=== PATIENT | female | born 1985 | race Caucasian/White ===

== ENCOUNTER 2016-09-01 12:27 | Emergency (ER) | payer MEDICAID, OTHER ==
[~2016-09-01] VITALS: Wt 103.0 kg
[2016-09-01] MEDS ORDERED: IBUPROFEN 600 MG TAB PO ONE (15:00)
[2016-09-01] MEDS ORDERED: UDROBDM PO (15:17)
[2016-09-01] MEDS ORDERED: IBUP-1542 PO (15:17)
[2016-09-01] MEDS ORDERED: AZIT250T94 PO (15:17)
--- NOTE | 2016-09-01 15:21 | ERD ---
ER Documentation Chief Complaint Date/Time DATE: 09/01/16 TIME: 15:20 Chief Complaint HEADACHE X 2 DAYS HPI This 31-year-old female presents with cough and headache for last 2 days. She is here with her for to 5 children with similar URI symptoms. She denies any history of trauma, vomiting, abdominal pain, shortness breath or chest pain. ROS All systems reviewed and are negative except as per history of present illness. Medications Home Meds Active Scripts Azithromycin* (Zithromax*) 250 Mg Tablet, 250 MG PO .ZPACK DIRECTED, #6 TAB TAKE 500 MG (2 TABS) THE FIRST DAY THEN 250 MG (1 TAB) DAYS 2-5 Prov:TARUN ASENCIO MD 09/01/16 Guaifenesin-Dextromethorphan* (Robitussin* DM) 100MG/10MG/5ML Syrup, 5 ML PO Q4H Y for COUGH for 5 Days, ML Prov:TARUN ASENCIO MD 09/01/16 Ibuprofen* (Motrin*) 600 Mg Tab, 600 MG PO Q6, #15 TAB Prov:TARUN ASENCIO MD 09/01/16 Physical Exam Vitals Vital Signs Date Time Temp Pulse Resp B/P Pulse Ox O2 Delivery O2 Flow Rate FiO2 09/01/16 12:40 98.1 106 18 126/72 99 Physical Exam Const: [] Alert, [id number] per Head: Atraumatic Eyes: Normal Conjunctiva ENT: Normal External Ears, Nose and Mouth. TMs and oropharynx normal. Neck: Full range of motion..~ No meningismus. Resp: Clear to auscultation bilaterally. Patient has noticeable wet cough without rales or retractions appreciated Cardio: Regular rate and rhythm, no murmurs Abd: Soft, non tender, non distended. Normal bowel sounds Skin: No petechiae or rashes Back: No midline or flank tenderness Ext: No cyanosis, or edema Neur: Awake and alert Psych: Normal Mood and Affect Results 24 hrs Current Medications Medications (Trade) Dose Ordered Sig/Davie Route PRN Reason Start Time Stop Time Status Last Admin Dose Admin Ibuprofen (Motrin) 600 mg ONCE ONCE PO 09/01/16 15:00 09/01/16 15:01 DC Procedures/MDM Patient presents with URI symptoms in addition to several family members with similar. Given the productive cough she will be treated with Zithromax, Robitussin and ibuprofen. The patient was stable with no new complaints during the ER course. Clinically, there is no current evidence to suggest meningitis, sepsis, acute abdomen, pneumonia, acute coronary syndrome, pulmonary embolism, or any other emergent condition appearing to require further evaluation or hospitalization. The patient should certainly return for any new or worsening symptoms per the aftercare instructions. They should otherwise follow-up with her primary care doctor for reevaluation this week. Departure Diagnosis: Primary Impression: URI, acute Additional Impression: Headache Headache type: unspecified Headache chronicity pattern: unspecified pattern Intractability: not intractable Qualified Code: R51 - Nonintractable headache, unspecified chronicity pattern, unspecified headache type Condition: Stable Patient Instructions: Acute Bronchitis Additional Instructions: Recheck for new or worsening symptoms or with primary care doctor. TARUN ASENCIO MD Sep 01, 2016 15:21
[2016-09-01 15:55] VITALS: BP 120/70; PULSE 88; RESP 18; TEMP 98.1
== END 2016-09-01 15:55 | disposition home or self-care (01) ==
LOC: FTE 12:27
DX: J06.9 Acute upper respiratory infection, unspecified (principal); R51 Headache; J45.909 Unspecified asthma, uncomplicated
CPT/HCPCS: Z7502; Z7610; 99283

== ENCOUNTER 2016-10-11 23:15 | Emergency (ER) | payer MEDICAID, OTHER ==
[~2016-10-11] VITALS: Ht 160 cm; Wt 103.0 kg
[~2016-10-11 23:15] MED LIST: AZIT250T94 PO; IBUP-1542 PO; UDROBDM PO
[2016-10-11 23:19] VITALS: Ht 160 cm; Wt 103.0 kg
[2016-10-12 01:01] LABS: URINE BLOOD (Dip) POC Negative (NEGATIVE)
[2016-10-12 01:31] LABS: ADD UMIC NO; URINE BILIRUBIN (Dip) NEGATIVE (NEGATIVE); URINE BLOOD (Dip) NEGATIVE (NEGATIVE); URINE COLOR LT. YELLOW (YELLOW); URINE GLUCOSE (Dip) NEGATIVE (NEGATIVE); URINE KETONES (Dip) NEGATIVE (NEGATIVE); URINE LEUKOCYTE ESTERASE (Dip) NEGATIVE (NEGATIVE); URINE NITRITE (Dip) NEGATIVE (NEGATIVE); URINE TOTAL PROTEIN (Dip) NEGATIVE (NEGATIVE); URINE UROBILINOGEN (Dip) 0.2 E.U./dL (0.1-1.0)
[2016-10-12 01:36] LABS: ADD SCAN DIFF NO
--- NOTE | 2016-10-12 01:36 | ERD ---
ER Documentation Chief Complaint Date/Time DATE: 10/12/16 TIME: 01:34 Chief Complaint RUQ abd pain since this morning HPI 31-year-old female presents here in emergency department for complaint of right upper quadrant abdominal pain radiating to the right lower quadrant area started this morning, describes the pain as sharp pain, 8/10 scale, no better or worse with anything. Patient denies any fever or chills. Patient denies any hematuria or dysuria. Patient denies any diarrhea or constipation. ROS All systems reviewed and are negative except as per history of present illness. Medications Home Meds Active Scripts Azithromycin* (Zithromax*) 250 Mg Tablet, 250 MG PO .ZPACK DIRECTED, #6 TAB TAKE 500 MG (2 TABS) THE FIRST DAY THEN 250 MG (1 TAB) DAYS 2-5 Prov:TARUN ASENCIO MD 09/01/16 Guaifenesin-Dextromethorphan* (Robitussin* DM) 100MG/10MG/5ML Syrup, 5 ML PO Q4H Y for COUGH for 5 Days, ML Prov:TARUN ASENCIO MD 09/01/16 Ibuprofen* (Motrin*) 600 Mg Tab, 600 MG PO Q6, #15 TAB Prov:TARUN ASENCIO MD 09/01/16 Allergies Allergies: Coded Allergies: No Known Allergy (Unverified , 09/01/16) PMhx/Soc Medical and Surgical Hx: pt denies Surgical Hx History of Surgery: No Anesthesia Reaction: No Hx Neurological Disorder: No Hx Respiratory Disorders: Yes (ASTHMA) Hx Cardiac Disorders: No Hx Psychiatric Problems: No Hx Miscellaneous Medical Probl: No Hx Alcohol Use: No Hx Substance Use: No Hx Tobacco Use: No Smoking Status: Never smoker FmHx Family History: No coronary disease, No diabetes, No other Physical Exam Vitals Vital Signs Date Time Temp Pulse Resp B/P Pulse Ox O2 Delivery O2 Flow Rate FiO2 10/11/16 23:19 97.8 82 20 127/76 100 Physical Exam GENERAL: The patient is well developed and appropriate for usual state of health, in no apparent distress. CHEST: Clear to auscultation bilaterally. There are no rales, wheezes or rhonchi. HEART: Regular rate and rhythm. No murmurs, clicks, rubs or gallops. No S3 or S4. ABDOMEN: Soft, nontender and nondistended. Good bowel sounds. No rebound or guarding. No gross peritonitis. No gross organomegaly or masses. No Kingsley sign or McBurney point tenderness. BACK: No midline or flank tenderness. EXTREMITIES: Equal pulses bilaterally. There is no peripheral clubbing, cyanosis or edema. No focal swelling or erythema. Full range of motion. Grossly neurovascularly intact. NEURO: Alert and oriented. Cranial nerves 2-12 intact. Motor strength in all 4 extremities with 5/5 strength. Sensation grossly intact. Normal speech and gait. SKIN: There is no apparent rash or petechia. The skin is warm and dry. HEMATOLOGIC AND LYMPHATIC: There is no evidence of excessive bruising or lymphedema. No gross cervical, axillary, or inguinal lymphadenopathy. Result Diagram: 10/12/1612410/12/16124 Results 24 hrs Laboratory Tests Test 10/12/16 00:59 10/12/16 01:02 10/12/16 01:25 Urine Color LT. YELLOW Urine Clarity CLEAR Urine pH 5.5 Urine Specific [place] >=1.030 Urine Ketones NEGATIVE Urine Nitrite NEGATIVE Urine Bilirubin NEGATIVE Urine Urobilinogen 0.2 E.U./dL Urine Leukocyte Esterase NEGATIVE Urine Hemoglobin NEGATIVE Urine Glucose NEGATIVE% Urine Total Protein NEGATIVE Bedside Urine pH (LAB) 5.5 Bedside Urine Protein (LAB) Trace Bedside Urine Glucose (UA) Negative Bedside Urine Ketones (LAB) Negative Bedside Urine Blood Negative Bedside Urine Nitrite (LAB) Negative Bedside Urine Leukocyte Esterase (L Negative White Blood Count 9.610^3/ul Red Blood Count 4.8610^6/ul Hemoglobin 13.0g/dl Hematocrit 40.5% Mean Corpuscular Volume 83.3fl Mean Corpuscular Hemoglobin 26.7pg Mean Corpuscular Hemoglobin Concent 32.1g/dl Red Cell Distribution Width 13.3% Platelet Count 03269^3/UL Mean Platelet Volume 11.2fl Neutrophils % 60.1% Lymphocytes % 31.8% Monocytes % 5.7% Eosinophils % 1.8% Basophils % 0.3% Nucleated Red Blood Cells % 0.0/100WBC Neutrophils # 5.710^3/ul Lymphocytes # 3.010^3/ul Monocytes # 0.510^3/ul Eosinophils # 0.210^3/ul Basophils # 0.010^3/ul Nucleated Red Blood Cells # 0.010^3/ul Sodium Level 140mmol/L Potassium Level 4.0mmol/L Chloride Level 107mmol/L Carbon Dioxide Level 25mmol/L Anion Gap 12 Blood Urea Nitrogen 9mg/dl Creatinine 0.62mg/dl Glucose Level 100mg/dl Calcium Level 9.5mg/dl Total Bilirubin 0.3mg/dl Direct Bilirubin 0.00mg/dl Indirect Bilirubin 0.3mg/dl Aspartate Amino Transf (AST/SGOT) 23IU/L Alanine Aminotransferase (ALT/SGPT) 30IU/L Alkaline Phosphatase 100IU/L Total Protein 7.8g/dl Albumin 4.3g/dl Globulin 3.50g/dl Albumin/Globulin Ratio 1.22 Lipase 75U/L PROCEDURE: US Abdomen. CLINICAL INDICATION: Abdominal Pain TECHNIQUE: Multiple real-time images were acquired of the patient's abdomen and retroperitoneum utilizing a high resolution transducer. COMPARISON: None available FINDINGS: The liver demonstrates diffuse increased echogenicity. The liver measures 19.4 cm in length. No gallstones are identified within the gallbladder. There is no pericholecystic fluid or gallbladder wall thickening. No intra or extrahepatic biliary dilatation is seen. The common bile duct measures 4 mm in maximal dimension. The visualized portions of the pancreas are unremarkable. No free fluid is identified. The right kidney measures 11.5 cm in long dimension. There is no right hydronephrosis or visualized renal calculi. IMPRESSION: 1. Fatty infiltrated and enlarged liver, 19.4 cm in length. 2. No gallstones or gallbladder wall thickening. No biliary dilatation or right hydronephrosis. RPTAT: HBST .Jesus Alberto Gustafson MD, MD Date Time Electronically viewed and signed by .Jesus Alberto Gustafson MD, MD on 10/12/2016 02:09 .T/ CC: NELLY VIZCARRA NP PROCEDURE: CT abdomen and pelvis without contrast. CLINICAL INDICATION: Abdominal Pain TECHNIQUE: CT scan of the abdomen and pelvis without contrast was performed. The patient was scanned without intravenous contrast. 3-D coronal reformatted images were obtained from the axial source images. The calculated radiation dose measures 1404 mGy centimeters. The CTDI measures 23 mGy COMPARISON: None available FINDINGS: CT abdomen: Limited images through the lung bases appear clear. The liver is diffusely decreased in density. There is no intrahepatic biliary dilatation. The spleen and pancreas are unremarkable noncontrast appearance. The gallbladder appears within normal limits. The adrenal glands are symmetric and normal. The kidneys appear normal in size and contour. No renal calculus or hydronephrosis is visualized. There is no ascites or retroperitoneal lymphadenopathy. Visualized bowel loops appear within normal limits. The appendix appears normal. CT pelvis: The urinary bladder appears normal. The pelvic organs are within normal limits. There is no abnormal pelvic mass or adenopathy. There is no pelvic free fluid. Visualized osseous structures appear unremarkable. IMPRESSION: 1. Diffuse fatty infiltration of the liver. 2. The appendix is seen and appears within normal limits. There is no hydronephrosis or nephrolithiasis. . RPTAT: HBST .Jesus Alberto Gustafson MD, MD Date Time Electronically viewed and signed by .Jesus Alberto Gustafson MD, MD on 10/12/2016 02:22 .T/ CC: NELLY VIZCARRA [employer] Procedures/MDM Medical Decision Making: Patient's abdominal pain nonspecific at this time, no loose leukocytosis, and no bandemia noted, no symptoms of any acute bacterial infection. No fever. There is low suspicion for abdominal emergencies at this time. Patients abdominal exam is normal at this time. Patients radiology exam does not show any abdominal emergencies at this time. There is low suspicion for appendicitis, cholecystitis, abdominal aortic aneurysms or peritonitis at this time. There is low suspicion for sepsis. Patient appears well and is hemodynamically stable. ' Disposition: Home. Condition: Stable Prescription for tramadol, Zofran Instructions: Patient is advised to take medications as prescribed. Patient is advised to rest, increase fluid intake and do brat diet for next 1-2 days and progress as tolerated. Patient is advised that if symptoms are worse, severe abdominal pain, uncontrolled vomiting, high fever, severe flank pain, worst signs and symptoms, to return to the emergency department immediately. Otherwise, patient can follow up with primary care doctor in 5-7 days. Departure Diagnosis: Primary Impression: Abdominal pain Abdominal location: right upper quadrant Qualified Code: R10.11 - Right upper quadrant abdominal pain Condition: Stable Patient Instructions: Abdominal Pain Additional Instructions: Patient is advised to take medications as prescribed. Patient is advised to rest, increase fluid intake and do brat diet for next 1-2 days and progress as tolerated. Patient is advised that if symptoms are worse, severe abdominal pain , uncontrolled vomiting, high fever, severe flank pain, worst signs and symptoms , to return to the emergency department immediately. Otherwise, patient can follow up with primary care doctor in 5-7 days. NELLY VIZCARRA NP October 12, 2016 01:36
[2016-10-12 01:39] LABS: BASOPHILS % 0.3 % (0.0-2.0); EOSINOPHILS # 0.2 10^3/ul (0.0-0.5); EOSINOPHILS % 1.8 % (0.0-7.0); HEMATOCRIT 40.5 % (37.0-47.0); LYMPHOCYTES % 31.8 % (15.0-51.0); MEAN CORPUSCULAR HEMOGLOBIN 26.7 pg (29.0-33.0); MEAN CORPUSCULAR HGB CONC 32.1 g/dl (32.0-37.0); MEAN CORPUSCULAR VOLUME 83.3 fl (82.0-101.0); MEAN PLATELET VOLUME 11.2 fl (7.4-10.4); MONOCYTE # 0.5 10^3/ul (0.3-0.9); MONOCYTES % 5.7 % (0.0-11.0); NEUTROPHIL # 5.7 10^3/ul (1.6-7.5); NEUTROPHILS % 60.1 % (39.0-77.0); PLATELET COUNT 304 10^3/UL (140-415); RED BLOOD COUNT 4.86 10^6/ul (4.20-5.40); RED CELL DISTRIBUTION WIDTH 13.3 % (11.5-14.5); WHITE BLOOD COUNT 9.6 10^3/ul (4.8-10.8)
[2016-10-12 01:52] LABS: ALBUMIN 4.3 g/dl (3.3-4.9); ALBUMIN/GLOBULIN RATIO 1.22; BILIRUBIN,INDIRECT 0.3 mg/dl (0-1.1); BILIRUBIN,TOTAL 0.3 mg/dl (0.2-1.3); CALCIUM 9.5 mg/dl (8.4-10.2); CREATININE 0.62 mg/dl (0.44-1.00); TOTAL PROTEIN 7.8 g/dl (6.1-8.1)
--- NOTE | 2016-10-12 02:10 | RADRPT ---
PROCEDURE: US Abdomen. CLINICAL INDICATION: Abdominal Pain TECHNIQUE: Multiple real-time images were acquired of the patient's abdomen and retroperitoneum ut ilizing a high resolution transducer. COMPARISON: None available FINDINGS: The liver demonstrates diffuse increased echogenicity. The liver measures 19.4 cm in length. No gall stones are identified within the gallbladder. There is no pericholecystic fluid or gallbladder wall thickening. No intra or extrahepatic biliary dilatation is seen. The common bile duct measures 4 m m in maximal dimension. The visualized portions of the pancreas are unremarkable. No free fluid i s identified. The right kidney measures 11.5 cm in long dimension. There is no right hydronephrosis or visualized renal calculi. IMPRESSION: 1. Fatty infiltrated and enlarged liver, 19.4 cm in length. 2. No gallstones or gallbladder wall thickening. No biliary dilatation or right hydronephrosis. RPTAT: HBST .Jesus Alberto Gustafson MD, MD Date Time Electronically viewed and signed by .Jesus Alberto Gustafson MD, on 10/12/2016 02:09 .T/
--- NOTE | 2016-10-12 02:22 | RADRPT ---
PROCEDURE: CT abdomen and pelvis without contrast. CLINICAL INDICATION: Abdominal Pain TECHNIQUE: CT scan of the abdomen and pelvis without contrast was performed. The patient was scan cheikh without intravenous contrast. 3-D coronal reformatted images were obtained from the axial [facility] e images. The calculated radiation dose measures 1404 mGy centimeters. The CTDI measures 23 mGy COMPARISON: None available FINDINGS: CT abdomen: Limited images through the lung bases appear clear. The liver is diffusely decreased in density. There is no intrahepatic biliary dilatation. The spl een and pancreas are unremarkable noncontrast appearance. The gallbladder appears within normal limi ts. The adrenal glands are symmetric and normal. The kidneys appear normal in size and contour. No renal calculus or hydronephrosis is visualized. There is no ascites or retroperitoneal lymphadenopathy. Visualized bowel loops appear within normal limits. The appendix appears normal. CT pelvis: The urinary bladder appears normal. The pelvic organs are within normal limits. There is no abnorm al pelvic mass or adenopathy. There is no pelvic free fluid. Visualized osseous structures appear unremarkable. IMPRESSION: 1. Diffuse fatty infiltration of the liver. 2. The appendix is seen and appears within normal limits. There is no hydronephrosis or nephrolith iasis. . RPTAT: HBST .Jesus Alberto Gustafson MD, Date Time Electronically viewed and signed by .Jesus Alberto Gustafson MD, on 10/12/2016 02:22 .T/
[2016-10-12] MEDS ORDERED: TRAM50TA2 PO (02:33)
[2016-10-12] MEDS ORDERED: ONDA4TAB14 PO (02:33)
[2016-10-12 02:43] VITALS: BP 125/80; PULSE 76; RESP 18; TEMP 98.6
== END 2016-10-12 02:45 | disposition home or self-care (01) ==
LOC: FTE 23:15
DX: R10.11 Right upper quadrant pain (principal); J45.909 Unspecified asthma, uncomplicated
CPT/HCPCS: 74176; 76705; 80053; 81003; 83690; 85025

== ENCOUNTER 2016-12-20 16:46 | Emergency (ER) | END 2016-12-20 19:19 | disposition home or self-care (01) | DX: R06.02 Shortness of breath (principal); J45.901 Unspecified asthma with (acute) exacerbation | CPT/HCPCS: 71010; 93005; 94664; Z7502; Z7610 ==

== ENCOUNTER 2017-07-27 22:15 | Emergency (ER) | END 2017-07-28 04:48 | disposition home or self-care (01) ==

== ENCOUNTER 2017-09-04 22:23 | Emergency (ER) | END 2017-09-05 01:13 | disposition home or self-care (01) ==

== ENCOUNTER 2017-09-12 00:02 | Outpatient (CLI) | END 2017-09-12 04:17 | disposition home or self-care (01) ==

== ENCOUNTER 2017-09-12 17:30 | Inpatient (IN) | END 2017-10-25 12:45 | disposition home or self-care (01) | DRG 765 ==

== ENCOUNTER 2018-03-12 11:53 | Emergency (ER) | END 2018-03-12 14:11 | disposition home or self-care (01) ==

== ENCOUNTER 2018-06-13 12:14 | Emergency (ER) | payer OTHER ==
[~2018-06-13] VITALS: Ht 162.6 cm; Wt 102.5 kg
[~2018-06-13 12:14] MED LIST changes: +ACET325T33 PO; +ALBU2TAB5 PO; -AZIT250T94 PO; +BENZ-6 PO; +CALC600T5 PO; +CETI1TAB6 PO; +FERR325T5 PO; +FLUT9.9S NASAL; +FOLI1POW MC; -IBUP-1542 PO; +IBUP-1544 PO; +PREN-93 PO; -UDROBDM PO
[2018-06-13 12:28] VITALS: BP 142/73; PULSE 87; RESP 20; Ht 162.6 cm; Wt 102.5 kg
[2018-06-13] MEDS ORDERED: IBUP-1542 PO (14:52)
--- NOTE | 2018-06-13 15:05 | ERD ---
ER Documentation Chief Complaint Chief Complaint c/o bilateral lower abd pain x1 week, radiating to back HPI 32-year-old female presents to the emergency department complaining of pain in h er incisional site. Mild achy. States that her last was about 7 months prior to being seen. Patient denies any fevers, dysuria, nausea vomiting diarrhea constipation. ROS All systems reviewed and are negative except as per history of present illness. Medications Home Meds Active Scripts Ibuprofen* (Motrin*) 600 Mg Tab, 600 MG PO Q6H PRN for PAIN AND OR ELEVATED TEMP, #30 TAB Prov:DEBBIE CASTELLANOS PA-C 06/13/18 Benzonatate* (Tessalon Perle*) 100 Mg Capsule, 100 MG PO Q8H PRN for COUGH, #30 CAP Prov:DEBBIE CASTELLANOS PA-C 03/12/18 Acetaminophen* (Tylenol*) 325 Mg Tablet, 2 TAB PO Q6 PRN for PAIN AND OR ELEVATED TEMP, #20 TAB Prov:DEBBIE CASTELLANOS PA-C 03/12/18 Fluticasone Propionate (Flonase Allergy Relief) 9.9 [address] [place].susp, 1 SPRAY NASAL BID, #1 BOTTLE TO EACH NOSTRIL Prov:DEBBIE CASTELLANOS PA-C 03/12/18 Cetirizine/Pseudoephedrine (Zyrtec-D) 5-120 Mg Tab.er.12h, 1 TAB PO Q12, #20 TAB Prov:DEBBIE CASTELLANOS PA-C 03/12/18 Ibuprofen* (Ibuprofen*) 800 Mg Tablet, 800 MG PO Q8, #60 TAB 0 Refills Prov:JAMISON MERAZ MD 10/24/17 Reported Medications Ferrous Sulfate (Ferrous Sulfate) 325 Mg Tablet.dr, 325 MG PO DAILY 09/12/17 Albuterol Sulfate* (Albuterol Sulfate*) 2 Mg Tablet, 2 MG PO QID, #120 TAB 09/12/17 Folic Acid (Folic Acid) 1 Gm Powder, 1 GM MC 09/12/17 Calcium Carbonate (CALCIUM) 600 Mg Tablet, 600 MG PO, TAB 09/12/17 Vit No.124/Iron/FA ( Vitamin Tablet) 1 Each Tablet, 1 EACH PO, TAB 09/12/17 Allergies Allergies: Coded Allergies: No Known Allergy (Unverified , 09/27/17) PMhx/Soc History of Surgery: Yes (C section(s)) Anesthesia Reaction: No Hx Neurological Disorder: No Hx Respiratory Disorders: Yes (asthma) Hx Cardiac Disorders: No Hx Psychiatric Problems: No Hx Miscellaneous Medical Probl: No Hx Alcohol Use: Yes (social) Hx Substance Use: No Hx Tobacco Use: No Smoking Status: Never smoker Physical Exam Vitals Vital Signs Date Temp Pulse Resp B/P (MAP) Pulse Ox O2 O2 Flow FiO2 Time Delivery Rate 06/13/18 98.2 87 20 142/73 99 12:28 (96) Physical Exam Const: No acute distress Head: Atraumatic Eyes: Normal Conjunctiva ENT: Normal External Ears, Nose and Mouth. Neck: Full range of motion. No meningismus. Resp: Clear to auscultation bilaterally Cardio: Regular rate and rhythm, no murmurs Abd: Soft, non tender, non distended. Normal bowel sounds Skin: No petechiae or rashes Back: No midline or flank tenderness Ext: No cyanosis, or edema Neur: Awake and alert Psych: Normal Mood and Affect Results 24 hrs Laboratory Tests Test 06/13/18 14:37 06/13/18 14:38 Bedside Urine pH (LAB) 5.5 Bedside Urine Protein (LAB) Trace Bedside Urine Glucose (UA) Negative Bedside Urine Ketones (LAB) Trace Bedside Urine Blood Negative Bedside Urine Nitrite (LAB) Negative Bedside Urine Leukocyte Esterase (L Negative Urine Color YELLOW Urine Clarity CLEAR Urine pH 5.0 Urine Specific [place] 1.030 Urine Ketones TRACE mg/dL Urine Nitrite NEGATIVE mg/dL Urine Bilirubin NEGATIVE mg/dL Urine Urobilinogen NEGATIVE mg/dL Urine Leukocyte Esterase NEGATIVE Angela/ul Urine Hemoglobin NEGATIVE mg/dL Urine Glucose NEGATIVE mg/dL Urine Total Protein NEGATIVE mg/dl POC Beta HCG, Qualitative NEGATIVE Procedures/MDM 32-year-old female history of about 7 months prior to being seen presents with pain at the incisional site which is likely due to adhesions. There is no evidence of urinary tract infection. Patient is well-appearing and stable to be discharged home to follow-up with her [employer]. Rx for ibuprofen was given Departure Diagnosis: Primary Impression: Pelvic pain Condition: Stable Patient Instructions: Pelvic Pain, Unknown Cause, Abdominal Pain, Adhesions Additional Instructions: FOLLOW-UP WITH AN [employer] TE[employer]ER Call your primary care doctor TOMORROW for an appointment during the next 1-2 days.See the doctor sooner or return here if your condition worsens before your appointment time. Return to this facility if you are not improving as expected. DEBBIE CASTELLANOS PA-C Jun 13, 2018 15:05
== END 2018-06-13 15:05 | disposition home or self-care (01) ==
LOC: FTE 12:14
DX: R10.2 Pelvic and perineal pain (principal); J45.909 Unspecified asthma, uncomplicated
CPT/HCPCS: 81003; 81025; Z7502; 99283

== ENCOUNTER 2018-09-22 22:43 | Emergency (ER) | payer OTHER ==
[~2018-09-22] VITALS: Ht 165.1 cm; Wt 103.6 kg
[~2018-09-22 22:43] MED LIST changes: +IBUP-1542 PO; +IBUP800T48 PO
[2018-09-22 22:57] VITALS: Ht 165.1 cm; Wt 103.6 kg
[2018-09-23] MEDS ORDERED: FAMOTIDINE 20 MG TAB PO STA (00:05)
[2018-09-23] MEDS ORDERED: LIDOCAINE/MYLANTA 40 ML BTL PO STA (00:05)
--- NOTE | 2018-09-23 01:36 | ERD ---
ER Documentation Chief Complaint Chief Complaint AP with bloating and nausea x 2 months HPI This is a 33-year-old female presents with about 2 months of abdominal pain, associated bloating and nausea, it is worse today. She denies fever, she has prior history of a . Symptoms are intermittent, she denies dysuria, there are no alleviating or aggravating factors. She has not had any chest pain or shortness of breath. ROS All systems reviewed and are negative except as per history of present illness. Medications Home Meds Active Scripts Famotidine* (Famotidine*) 20 Mg Tablet, 20 MG PO BID, #60 TAB Prov:KELBY ONEAL MD 09/23/18 Ibuprofen* (Motrin*) 800 Mg Tab, 800 MG PO Q6H PRN for PAIN AND OR ELEVATED TEMP, #30 TAB Prov:TIM BARTON MD 06/28/18 Ibuprofen* (Motrin*) 600 Mg Tab, 600 MG PO Q6H PRN for PAIN AND OR ELEVATED TEMP, #30 TAB Prov:DEBBIE CASTELLANOS PA-C 06/13/18 Benzonatate* (Tessalon Perle*) 100 Mg Capsule, 100 MG PO Q8H PRN for COUGH, #30 CAP Prov:DEBBIE CASTELLANOS PA-C 03/12/18 Acetaminophen* (Tylenol*) 325 Mg Tablet, 2 TAB PO Q6 PRN for PAIN AND OR ELEVATED TEMP, #20 TAB Prov:DEBBIE CASTELLANOS PA-C 03/12/18 Fluticasone Propionate (Flonase Allergy Relief) 9.9 Ml [place].susp, 1 SPRAY NASAL BID, #1 BOTTLE TO EACH NOSTRIL Prov:DEBBIE CASTELLANOS PA-C 03/12/18 Cetirizine/Pseudoephedrine (Zyrtec-D) 5-120 Mg Tab.er.12h, 1 TAB PO Q12, #20 TAB Prov:DEBBIE CASTELLANOS PA-C 03/12/18 Ibuprofen* (Ibuprofen*) 800 Mg Tablet, 800 MG PO Q8, #60 TAB 0 Refills Prov:JAMISON MERAZ MD 10/24/17 Reported Medications Ferrous Sulfate (Ferrous Sulfate) 325 Mg Tablet., 325 MG PO DAILY 09/12/17 Albuterol Sulfate* (Albuterol Sulfate*) 2 Mg Tablet, 2 MG PO QID, #120 TAB 09/12/17 Folic Acid (Folic Acid) 1 Gm Powder, 1 GM MC 09/12/17 Calcium Carbonate (CALCIUM) 600 Mg Tablet, 600 MG PO, TAB 09/12/17 Vit No.124/Iron/FA ( Vitamin Tablet) 1 Each Tablet, 1 EACH PO, TAB 09/12/17 Allergies Allergies: Coded Allergies: No Known Allergy (Unverified , 09/27/17) PMhx/Soc History of Surgery: Yes (C section(s)) Anesthesia Reaction: No Hx Neurological Disorder: No Hx Respiratory Disorders: Yes (asthma) Hx Cardiac Disorders: No Hx Psychiatric Problems: No Hx Miscellaneous Medical Probl: No Hx Alcohol Use: Yes (social) Hx Substance Use: No Hx Tobacco Use: No Smoking Status: Never smoker Physical Exam Vitals Vital Signs Date Temp Pulse Resp B/P (MAP) Pulse Ox O2 O2 Flow FiO2 Time Delivery Rate 09/23/18 97.5 76 16 99/51 (67) 100 Room Air 03:10 09/23/18 77 16 115/65 100 Room Air 02:15 (82) 09/23/18 73 16 106/58 100 Room Air 00:15 (74) 09/22/18 98.7 69 20 141/71 100 22:57 (94) Physical Exam Const: No acute distress Head: Atraumatic Eyes: Normal Conjunctiva ENT: Normal External Ears, Nose and Mouth. Neck: Full range of motion. No meningismus. Resp: Clear to auscultation bilaterally Cardio: Regular rate and rhythm, no murmurs Abd: Soft, there is tenderness over the right upper and right lower quadrant, non distended. Normal bowel sounds Skin: No petechiae or rashes Back: No midline or flank tenderness Ext: No cyanosis, or edema Neur: Awake and alert Psych: Normal Mood and Affect Result Diagram: 09/23/18 0024 09/23/18 0024 Results 24 hrs Laboratory Tests Test 09/23/18 00:17 09/23/18 00:24 POC Beta HCG, Qualitative NEGATIVE White Blood Count 9.5 10^3/ul Red Blood Count 4.94 10^6/ul Hemoglobin 13.2 g/dl Hematocrit 40.8 % Mean Corpuscular Volume 82.6 fl Mean Corpuscular Hemoglobin 26.7 pg Mean Corpuscular Hemoglobin Concent 32.4 g/dl Red Cell Distribution Width 13.7 % Platelet Count 311 10^3/UL Mean Platelet Volume 10.9 fl Immature Granulocytes % 0.500 % Neutrophils % 56.4 % Lymphocytes % 35.0 % Monocytes % 5.5 % Eosinophils % 2.3 % Basophils % 0.3 % Nucleated Red Blood Cells % 0.0 /100WBC Immature Granulocytes # 0.050 10^3/ul Neutrophils # 5.3 10^3/ul Lymphocytes # 3.3 10^3/ul Monocytes # 0.5 10^3/ul Eosinophils # 0.2 10^3/ul Basophils # 0.0 10^3/ul Nucleated Red Blood Cells # 0.0 10^3/ul Urine Color YELLOW Urine Clarity SLIGHTLY CLOUDY Urine pH 5.0 Urine Specific [place] 1.028 Urine Ketones TRACE mg/dL Urine Nitrite NEGATIVE mg/dL Urine Bilirubin NEGATIVE mg/dL Urine Urobilinogen 1+ mg/dL Urine Leukocyte Esterase NEGATIVE Angela/ul Urine Microscopic RBC 2 /HPF Urine Microscopic WBC 2 /HPF Urine Squamous Epithelial Cells FEW /HPF Urine Bacteria FEW /HPF Urine Mucus MANY /HPF Urine Hemoglobin NEGATIVE mg/dL Urine Glucose NEGATIVE mg/dL Urine Total Protein NEGATIVE mg/dl Sodium Level 141 mmol/L Potassium Level 3.8 mmol/L Chloride Level 102 mmol/L Carbon Dioxide Level 28 mmol/L Anion Gap 11 Blood Urea Nitrogen 12 mg/dl Creatinine 0.61 mg/dl Est Glomerular Filtrat Rate mL/min > 60 mL/min Glucose Level 99 mg/dl Calcium Level 9.4 mg/dl Total Bilirubin 0.3 mg/dl Direct Bilirubin 0.00 mg/dl Indirect Bilirubin 0.3 mg/dl Aspartate Amino Transf (AST/SGOT) 21 IU/L Alanine Aminotransferase (ALT/SGPT) 21 IU/L Alkaline Phosphatase 94 IU/L Total Protein 7.9 g/dl Albumin 4.4 g/dl Globulin 3.50 g/dl Albumin/Globulin Ratio 1.25 Lipase 97 U/L Current Medications Medications Dose Sig/Davie Start Time Status Last (Trade) Ordered Route PRN Stop Time Admin Dose Reason Admin Famotidine 20 mg ONCE STAT 09/23/18 DC 09/23/18 (Pepcid) PO 00:05 00:20 4/14/19 00:06 40 ml ONCE STAT 09/23/18 DC 09/23/18 Miscellaneous PO 00:05 00:20 Medication 09/23/18 00:06 (Gi Cocktail (2)) Procedures/MDM This 33-year-old female presents for fashion of abdominal pain. On exam she has no peritoneal signs, she remained afebrile and nontoxic in the ED, her CT abdomen pelvis showed hepatic steatosis, otherwise unremarkable, I discussed findings with the patient, and on serial exams, she remained stable, a prescription of Pepcid, at discharge she was in no distress. CBC: no e/o of systemic infection or severe anemia CMP: no e/o severe acidosis, alkalosis, renal failure, diabetic ketoacidosis, liver disease Lipase: no e/o pancreatitis PT/INR: normal coagulation Urine: no e/o acute infection or hematuria Departure Diagnosis: Primary Impression: Abdominal pain Abdominal location: unspecified location Qualified Codes: R10.9 - Unspecified abdominal pain Condition: Stable KELBY ONEAL MD Sep 23, 2018 01:36
[2018-09-23] MEDS ORDERED: FAMO20TA18 PO (02:58)
[2018-09-23 03:10] VITALS: BP 99/51; PULSE 76; RESP 16
== END 2018-09-23 03:20 | disposition home or self-care (01) ==
LOC: E/R 22:43
DX: R10.9 Unspecified abdominal pain (principal); J45.909 Unspecified asthma, uncomplicated
CPT/HCPCS: 74176; 80053; 81001; 81025; 83690; 85025; Z7502; Z7610; 81003

== ENCOUNTER 2018-11-19 19:29 | Emergency (ER) | payer OTHER ==
[~2018-11-19] VITALS: Ht 162.6 cm; Wt 103.1 kg
[~2018-11-19 19:29] MED LIST changes: +FAMO20TA18 PO
[2018-11-19 19:58] VITALS: Ht 162.6 cm; Wt 103.1 kg
[2018-11-19] MEDS ORDERED: IBUPROFEN 600 MG TAB PO ONE (22:30)
[2018-11-19] MEDS ORDERED: LIDOCAINE/MYLANTA 40 ML BTL PO ONE (23:30)
[2018-11-20] MEDS ORDERED: FAMO-96 PO (00:25)
[2018-11-20] MEDS ORDERED: IBUP-1542 PO (00:25)
[2018-11-20] MEDS ORDERED: NAPR-985 PO (00:25)
--- NOTE | 2018-11-20 00:37 | ERD ---
ER Documentation Chief Complaint Chief Complaint states right abdominal pain for a few months, also c/o rectal bleed HPI 33-year-old female G 11 P7 past medical history of mild asthma who presents with complaint of right upper quadrant abdominal pain over the past month. Also single episode of rectal bleeding earlier today. She has had intermittent nausea but no episodes of vomiting. Was seen in this emergency room over a herbert h ago for similar complaints had CT of abdomen and pelvis without acute finding, notable steatosis and slightly enlarged liver, unremarkable laboratory findings. She otherwise denies fevers, chills, hematemesis, dizziness, shortness of breath, dyspnea, recent URI type symptoms, urinary symptoms as burning itching, frequency, foul-smelling urine, vaginal bleeding, vaginal discharge. Last menstrual period was October 29 and reported as normal. She otherwise without complaint. Has not taken any medications for pain. Otherwise denies EtOH abuse or drug abuse history. ROS All systems reviewed and are negative except as per history of present illness. Medications Home Meds Active Scripts Famotidine* (Pepcid*) 20 Mg Tablet, 20 MG PO BID for 4 Days, TAB Prov:MEGHAN BURNS PA-C 11/20/18 Naproxen* (Naprosyn*) 500 Mg Tablet, 500 MG PO BID PRN for PAIN AND/OR INFLAMMATION, #30 TAB Prov:MEGHAN BURNS PA-C 11/20/18 Ibuprofen* (Motrin*) 600 Mg Tab, 600 MG PO Q6H PRN for PAIN AND OR ELEVATED TEMP, #30 TAB Prov:MEGHAN BURNSC 11/20/18 Famotidine* (Famotidine*) 20 Mg Tablet, 20 MG PO BID, #60 TAB Prov:KELBY ONEAL MD 09/23/18 Ibuprofen* (Motrin*) 800 Mg Tab, 800 MG PO Q6H PRN for PAIN AND OR ELEVATED TEMP, #30 TAB Prov:TIM BARTON MD 06/28/18 Ibuprofen* (Motrin*) 600 Mg Tab, 600 MG PO Q6H PRN for PAIN AND OR ELEVATED TEMP, #30 TAB Prov:DEBBIE CASTELLANOS PA-C 06/13/18 Benzonatate* (Tessalon Perle*) 100 Mg Capsule, 100 MG PO Q8H PRN for COUGH, #30 CAP Prov:DEBBIE CASTELLANOS PA-C 03/12/18 Acetaminophen* (Tylenol*) 325 Mg Tablet, 2 TAB PO Q6 PRN for PAIN AND OR ELEVATED TEMP, #20 TAB Prov:DEBBIE CASTELLANOS PA-C 03/12/18 Fluticasone Propionate (Flonase Allergy Relief) 9.9 Ml [place].susp, 1 SPRAY NASAL BID, #1 BOTTLE TO EACH NOSTRIL Prov:DEBBIE CASTELLANOS PA-C 03/12/18 Cetirizine/Pseudoephedrine (Zyrtec-D) 5-120 Mg Tab.er.12h, 1 TAB PO Q12, #20 TAB Prov:DEBBIE CASTELLANOS PA-C 03/12/18 Ibuprofen* (Ibuprofen*) 800 Mg Tablet, 800 MG PO Q8, #60 TAB 0 Refills Prov:JAMISON MERAZ MD 10/24/17 Reported Medications Ferrous Sulfate (Ferrous Sulfate) 325 Mg Tablet.dr, 325 MG PO DAILY 09/12/17 Albuterol Sulfate* (Albuterol Sulfate*) 2 Mg Tablet, 2 MG PO QID, #120 TAB 09/12/17 Folic Acid (Folic Acid) 1 Gm Powder, 1 GM MC 09/12/17 Calcium Carbonate (CALCIUM) 600 Mg Tablet, 600 MG PO, TAB 09/12/17 Vit No.124/Iron/FA ( Vitamin Tablet) 1 Each Tablet, 1 EACH PO, TAB 09/12/17 Allergies Allergies: Coded Allergies: No Known Allergy (Unverified , 09/27/17) PMhx/Soc History of Surgery: Yes (C section(s)) Anesthesia Reaction: No Hx Neurological Disorder: No Hx Respiratory Disorders: Yes (asthma) Hx Cardiac Disorders: No Hx Psychiatric Problems: No Hx Miscellaneous Medical Probl: No Hx Alcohol Use: Yes (social) Hx Substance Use: No Hx Tobacco Use: No Smoking Status: Never smoker Physical Exam Vitals Vital Signs Date Temp Pulse Resp B/P (MAP) Pulse Ox O2 O2 Flow FiO2 Time Delivery Rate 11/19/18 98.2 96 18 159/90 99 19:58 (113) Physical Exam I have reviewed the triage vital signs. Const: Obese, central obesity, well developed, appears stated age Eyes: PERRL, no conjunctival injection HENT: NCAT, Neck supple without meningismus CV: RRR, Warm, well-perfused extremities RESP: CTAB, Unlabored respiratory effort GI: soft,tender to deep palpation to right upper quadrant, no flank tenderness, no rebound or guarding, non-distended, no masses, rectal exam deferred MSK: No gross deformities appreciated Skin: Warm, dry. No rashes Neuro: grossly non focal Psych: Appropriate mood and affect. Result Diagram: 11/19/18229911/19/182299 Results 24 hrs Laboratory Tests Test 11/19/18 23:00 White Blood Count 9.1 10^3/ul Red Blood Count 5.01 10^6/ul Hemoglobin 13.3 g/dl Hematocrit 40.9 % Mean Corpuscular Volume 81.6 fl Mean Corpuscular Hemoglobin 26.5 pg Mean Corpuscular Hemoglobin Concent 32.5 g/dl Red Cell Distribution Width 13.6 % Platelet Count 298 10^3/UL Mean Platelet Volume 10.6 fl Immature Granulocytes % 0.200 % Neutrophils % 61.5 % Lymphocytes % 30.7 % Monocytes % 5.3 % Eosinophils % 2.1 % Basophils % 0.2 % Nucleated Red Blood Cells % 0.0 /100WBC Immature Granulocytes # 0.020 10^3/ul Neutrophils # 5.6 10^3/ul Lymphocytes # 2.8 10^3/ul Monocytes # 0.5 10^3/ul Eosinophils # 0.2 10^3/ul Basophils # 0.0 10^3/ul Nucleated Red Blood Cells # 0.0 10^3/ul Urine Color YELLOW Urine Clarity SLIGHTLY CLOUDY Urine pH 5.0 Urine Specific [place] 1.028 Urine Ketones TRACE mg/dL Urine Nitrite NEGATIVE mg/dL Urine Bilirubin NEGATIVE mg/dL Urine Urobilinogen 1+ mg/dL Urine Leukocyte Esterase NEGATIVE Angela/ul Urine Microscopic RBC 1 /HPF Urine Microscopic WBC 0 /HPF Urine Squamous Epithelial Cells FEW /HPF Urine Mucus MODERATE /HPF Urine Hemoglobin NEGATIVE mg/dL Urine Glucose NEGATIVE mg/dL Urine Total Protein NEGATIVE mg/dl Sodium Level 141 mmol/L Potassium Level 3.6 mmol/L Chloride Level 106 mmol/L Carbon Dioxide Level 26 mmol/L Anion Gap 9 Blood Urea Nitrogen 9 mg/dl Creatinine 0.60 mg/dl Est Glomerular Filtrat Rate mL/min > 60 mL/min Glucose Level 96 mg/dl Calcium Level 9.5 mg/dl Total Bilirubin 0.6 mg/dl Direct Bilirubin 0.00 mg/dl Indirect Bilirubin 0.6 mg/dl Aspartate Amino Transf (AST/SGOT) 26 IU/L Alanine Aminotransferase (ALT/SGPT) 32 IU/L Alkaline Phosphatase 78 IU/L Total Protein 7.6 g/dl Albumin 4.4 g/dl Globulin 3.20 g/dl Albumin/Globulin Ratio 1.37 Lipase 105 U/L POC Beta HCG, Qualitative NEGATIVE Current Medications Medications Dose Sig/Davie Start Time Status Last (Trade) Ordered Route PRN Stop Time Admin Dose Reason Admin Ibuprofen 600 mg ONCE ONCE 11/19/18 DC 11/19/18 (Motrin) PO 22:30 23:00 11/19/18 22:31 40 ml ONCE ONCE 11/19/18 DC 11/19/18 Miscellaneous PO 23:30 23:18 Medication 11/19/18 23:31 (Gi Cocktail (2)) Procedures/MDM 33-year-old female who presents with complaint of right upper quadrant abdominal pain. Given patients test is negative, highly doubt ectopic . Considered causes of female-specific abdominal pain unrelated to (e.g., pelvic inflammatory disease with or without tubo-ovarian abs cess, [id number], etc.). Also considered causes of abdominal pain that are not gender-specific (e.g., appendicitis, volvulus, small bowel obstruction, mesenteric adenitis, acute cholecystitis/choledocholithiasis and other biliary pathology, etc.). Patient well-appearing with normal vital signs. Laboratory testing and imaging here reviewed and normal. Patient given strict return precautions for worsening pain, inability to eat/drink, fevers (temperature over 100.4F), or other concerns. Patient instructed to follow up with their primary doctor and is agreeable; all questions were answered. ED course: Rectal exam deferred Right upper quadrant/gallbladder ultrasound without acute finding Lipase within normal limits, no leukocytosis, liver enzymes within normal limits UA unremarkable Will discharge with appropriate pain medications, Zofran, famotidine, patient was advised to follow-up with PMD for further evaluation and care DISPOSITION PLAN: We discussed follow up with the patient's primary care doctor within 24 to 48 hours. Patient counseled regarding my diagnostic impression and care plan. Prior to discharge all questions answered. Pt agrees with treatment plan and understands strict return precautions. Precautionary instructions provided including instructions to return to the ER if not improving or for any worsening or changing symptoms or concerns. Disclaimer: Inadvertent spelling and grammatical errors are likely due to EHR/dictation software use and do not reflect on the overall quality of patient care. Also, please note that the electronic time recorded on this note does not necessarily reflect the actual time of the patient encounter. Departure Diagnosis: Primary Impression: Abdominal pain Condition: Stable Patient Instructions: Abdominal Pain, Non-Alcoholic Fatty Liver Disease (NAFLD) Additional Instructions: Call your primary care doctor TOMORROW for an appointment during the next 1 WEEK.Tell the motion picture scene builder that you were referred from this facility.See the doctor sooner or return here if your condition worsens before your appointment time. MEGHAN BURNS PA-C Nov 20, 2018 00:37
[2018-11-20 00:46] VITALS: BP 126/67; PULSE 82; RESP 14
== END 2018-11-20 00:47 | disposition home or self-care (01) ==
LOC: FTE 19:29
DX: R10.11 Right upper quadrant pain (principal); J45.909 Unspecified asthma, uncomplicated
CPT/HCPCS: 36415; 76705; 80053; 81001; 81025; 83690; 85025; Z7502; Z7610; 81003